=== PATIENT | female | born 1995 | race Caucasian/White ===

== ENCOUNTER → 2017-04-01 | Outpatient (CLI) | payer OTHER ==
--- NOTE | 2017-04-01 18:25 | DIAGNOSTIC IMAGING REPORT ---
ULTRASOUND L VENOUS DOPPLER UPR EXT UNILAT CLINICAL HISTORY: LEFT ARM PAIN COMPARISON STUDY: No previous studies for comparison. FINDINGS: No intraluminal thrombus was visualized. The internal jugular, subclavian, axillary, cephalic, brachial, basilic, radial, and ulnar veins were patent. IMPRESSION: No evidence of left upper extremity DVT. Electronically signed by: David Ortiz M.D. 04/01/2017 6:24 PM Dictated Date/Time: 04/01/2017 6:23 PM
== END | disposition home or self-care (01) ==
LOC: C.ULTR 17:50
PROVIDERS: ATTEND Physician Assistant Medical
DX: M79.602 Pain in left arm (principal)